=== PATIENT | male | born 1960 | race Caucasian/White ===

== ENCOUNTER 2020-02-20 13:31 | Day surgery (SDC) | payer OTHER ==
[~2020-02-20] VITALS: Ht 167.6 cm; Wt 94.9 kg
[~2020-02-20 13:31] MED LIST: METR500 PO; OXYACE5T PO; RXOXYACE PO; SULTRIDS PO
--- NOTE | 2020-02-20 14:36 | NUR ---
02/20/20 1436 Trish Merlos LATE ENTRY PATIENT DRANK APPROXIMATELY 8 OUNCES OF WATER AT 1300. DR. HAMPTON NOTIFIED. DR. HAMPTON SPOKE WITH PATIENT AND LET PATIENT KNOW THAT PATIENT NEEDED TO BE NPO 2 HRS PRIOR TO PROCEDURE TO RECEIVE SEDATION. PATIENT CAN NOT BE DELAYED BECAUSE DR. HAMPTON IS UNAVAILABLE AFTER 1500 TODAY. PATIENT INFORMED THAT THE OTHER OPTION WAS TO HAVE THE PROCEDURE WITHOUT SEDATION. PATIENT AGREES TO PROCEED WITHOUT SEDATION.
--- NOTE | 2020-02-20 15:20 | NUR ---
02/20/20 1520 Trish Merlos PATIENT REFUSED MULTIPLE OFFERS OF PO FLUIDS
== END 2020-02-20 15:17 | disposition home or self-care (01) ==
LOC: ORSCSDS 13:31
PROVIDERS: Internal Medicine Gastroenterology
PROC: 0DBN8ZX Excision of Sigmoid Colon, Via Natural or Artificial Opening Endoscopic, Diagnostic (ICD-10-PCS; principal; 2020-02-20 14:30)
PROC: 0DBL8ZX Excision of Transverse Colon, Via Natural or Artificial Opening Endoscopic, Diagnostic (ICD-10-PCS; principal; 2020-02-20 14:30)
DX: K92.1 Melena (principal); D12.3 Benign neoplasm of transverse colon; K63.5 Polyp of colon; K52.9 Noninfective gastroenteritis and colitis, unspecified; Z87.891 Personal history of nicotine dependence; K21.9 Gastro-esophageal reflux disease without esophagitis; E78.5 Hyperlipidemia, unspecified; E78.1 Pure hyperglyceridemia; I10 Essential (primary) hypertension
CPT/HCPCS: 88305; J2704; J7120

== ENCOUNTER 2020-11-05 07:38 | Day surgery (SDC) | payer OTHER ==
[~2020-11-05] VITALS: Ht 165.1 cm; Wt 101.9 kg
[~2020-11-05 07:38] MED LIST changes: +AMLO5 PO; +DULO60 PO; +HYDCHL25 PO; +IBUP800 PO; +IRBE150 PO; +MESALAMINE4 GM/60 M2 PR
--- NOTE | 2020-11-05 07:48 | NUR ---
History, Chart, Medications and Allergies reviewed before start of procedure. Patient confirms NPO status and agrees with scheduled surgery. Patient States Post-Procedure ride home has been arranged with, Cm Baugh, friend.
--- NOTE | 2020-11-05 12:59 | NUR ---
Patient up to Ambulate independently. Gait steady. Discharge instructions reviewed with patient. Patient verbalizes understanding. Copy given to patient to take home. Pt reports understanding of HAMZAH drain, given flow sheet for monitoring output. Patient States Post-Procedure ride home has been arranged with friend giving pt ride home. Discharged via wheelchair to private car with friend giving pt ride home.
== END 2020-11-05 13:00 | disposition home or self-care (01) ==
LOC: ORSCMMR 07:38 → ORD 09:15 → ORSCMMR 09:15
PROVIDERS: Surgery
PROC: 0HX8XZZ Transfer Buttock Skin, External Approach (ICD-10-PCS; principal; 2020-11-05 09:15)
PROC: 0JB90ZZ Excision of Buttock Subcutaneous Tissue and Fascia, Open Approach (ICD-10-PCS; principal; 2020-11-05 09:15)
DX: L05.91 Pilonidal cyst without abscess (principal); I10 Essential (primary) hypertension; Z87.891 Personal history of nicotine dependence; E66.01 Morbid (severe) obesity due to excess calories; Z68.37 Body mass index [BMI] 37.0-37.9, adult; Z79.899 Other long term (current) drug therapy
CPT/HCPCS: A9270; J0171; J0295; J1100; J1885; J2250; J2405; J2704; J3010; J7120

== ENCOUNTER 2021-11-08 04:23 | Emergency (ER) | payer OTHER ==
[~2021-11-08] VITALS: Ht 167.6 cm; Wt 102.1 kg
[2021-11-08] MEDS ORDERED: BEVESPI AEROS10.7 G1 (05:05)
[2021-11-08] MEDS ORDERED: Ventolin/Prove6.7 GM (05:06)
[2021-11-08 05:59] LABS: BASOPHILS ABSOLUTE AUTO 0.11 K/mm3 (0.00-0.23); BASOPHILS PERCENT AUTO 1 % (0-2); EOSINOPHILS ABSOLUTE AUTO 0.48 K/mm3 (0.00-0.68); EOSINOPHILS PERCENT AUTO 3 % (0-6); Hematocrit 43.4 % (37.0-53.0); Hemoglobin 14.6 g/dL (13.5-17.5); IMMATURE GRAN ABSOLUTE AUTO 0.08 K/mm3 (0.00-0.10); IMMATURE GRAN PERCENT AUTO 1 % (0-1); LYMPHOCYTES ABSOLUTE AUTO 1.44 K/mm3 (0.84-5.20); LYMPHOCYTES PERCENT AUTO 10 % (21-46); MONOCYTES ABSOLUTE AUTO 0.94 K/mm3 (0.16-1.47); MONOCYTES PERCENT AUTO 7 % (4-13); Mean Corpuscular HGB 30.2 pg (26.0-34.0); Mean Corpuscular HGB Conc 33.6 g/dL (31.5-36.5); Mean Corpuscular Volume 90 fL (80-100); Mean Platelet Volume 9.8 fL (9.1-12.4); NEUTROPHILS ABSOLUTE AUTO 11.07 K/mm3 (1.96-9.15); NEUTROPHILS PERCENT AUTO 78 % (41-73); Platelet Count 337 K/mm3 (150-400); RDW Coefficient Variation 13.2 % (11.7-14.2); RDW Standard Deviation 42.9 fL (35.1-46.3); Red Blood Cell Count 4.84 M/mm3 (4.30-5.90); White Blood Cell Count 14.12 K/mm3 (4.00-11.30)
[2021-11-08] MEDS ORDERED: PRED20 PO (06:18)
[2021-11-08 06:19] LABS: Albumin/Globulin Ratio 1.2 (0.8-1.8); Bilirubin, Total 0.9 mg/dL (0.1-1.0); Bun/Creatinine Ratio 12.7 (12.0-20.0); Calcium, Blood 8.8 mg/dL (8.5-10.1); Creatinine, Blood 1.66 mg/dL (0.60-1.20); Globulin, Blood 3.3 g/dL (2.2-4.0); Potassium, Blood 3.1 mmol/L (3.5-5.5); Total Protein, Blood 7.3 g/dL (6.4-8.2)
== END 2021-11-08 09:21 | disposition home or self-care (01) ==
LOC: ER 04:23
PROVIDERS: Student in an Organized Health Care Education/Training Program
DX: J44.1 Chronic obstructive pulmonary disease with (acute) exacerbation (principal); Z79.899 Other long term (current) drug therapy; Z87.891 Personal history of nicotine dependence
CPT/HCPCS: 36415; 71045; 80053; 84484; 85025; 93005; 93010; 94640; 94645; 94664; J2930

== ENCOUNTER 2023-03-05 10:22 | Emergency (ER) | payer OTHER ==
[~2023-03-05] VITALS: Ht 167.6 cm; Wt 95.2 kg
[~2023-03-05 10:22] MED LIST changes: +BEVESPI AEROS10.7 G1; +PRED20 PO; +Ventolin/Prove6.7 GM
[2023-03-05 11:13] VITALS: BP 145/102
[2023-03-05] MEDS ORDERED: AMOCLA875 PO (11:15)
== END 2023-03-05 11:18 | disposition home or self-care (01) ==
LOC: ER 10:22
DX: K04.7 Periapical abscess without sinus (principal); Z87.891 Personal history of nicotine dependence; J44.9 Chronic obstructive pulmonary disease, unspecified; Z79.51 Long term (current) use of inhaled steroids; Z79.1 Long term (current) use of non-steroidal anti-inflammatories (NSAID); Z79.899 Other long term (current) drug therapy
CPT/HCPCS: 99282

== ENCOUNTER 2024-08-31 11:00 | Day surgery (SDC) | payer OTHER ==
[~2024-08-31] VITALS: Ht 165.1 cm; Wt 95.4 kg
[~2024-08-31 11:00] MED LIST changes: +AMOCLA875 PO; +Lactated Ringer's 1,000 ML IV ONE; +propofoL 50 ML IV ONE
[2024-08-31] MEDS ORDERED: Triamcinolone A15 GM (12:12)
[2024-08-31] MEDS ORDERED: TRELEGY ELLIPT1 EAC1 (12:12)
[2024-08-31] MEDS ORDERED: MONT10T (12:12)
[2024-08-31] MEDS ORDERED: Lactated Ringer's 1,000 ML IV ONE (12:55)
[2024-08-31] MEDS ORDERED: propofoL 50 ML IV ONE (14:02)
[2024-08-31 14:30] VITALS: BP 116/85
== END 2024-08-31 14:35 | disposition home or self-care (01) ==
LOC: ORSCSDS 11:00
PROVIDERS: Internal Medicine Gastroenterology
PROC: 0DBP8ZX Excision of Rectum, Via Natural or Artificial Opening Endoscopic, Diagnostic (ICD-10-PCS; principal; 2024-08-31 12:30)
PROC: 0DBH8ZX Excision of Cecum, Via Natural or Artificial Opening Endoscopic, Diagnostic (ICD-10-PCS; principal; 2024-08-31 12:30)
PROC: 0DBK8ZX Excision of Ascending Colon, Via Natural or Artificial Opening Endoscopic, Diagnostic (ICD-10-PCS; principal; 2024-08-31 12:30)
PROC: 0DBL8ZX Excision of Transverse Colon, Via Natural or Artificial Opening Endoscopic, Diagnostic (ICD-10-PCS; principal; 2024-08-31 12:30)
DX: K62.5 Hemorrhage of anus and rectum (principal); D12.3 Benign neoplasm of transverse colon; D12.0 Benign neoplasm of cecum; D12.2 Benign neoplasm of ascending colon; K52.9 Noninfective gastroenteritis and colitis, unspecified; R19.4 Change in bowel habit; Z86.0101 Personal history of adenomatous and serrated colon polyps; C61 Malignant neoplasm of prostate; I10 Essential (primary) hypertension; Z79.899 Other long term (current) drug therapy; Z87.891 Personal history of nicotine dependence
CPT/HCPCS: 88305; J2704; J7120